=== PATIENT | female | born 1955 | race Caucasian/White ===

== ENCOUNTER → 2017-04-01 | Outpatient (CLI) | payer BC ==
--- NOTE | 2017-04-01 12:54 | KCIC ---
DATE: 04/01/2017. EXAM: MAMMO SHITAL SCREENING BILATERAL. HISTORY: Routine mammographic screening. COMPARISON: 07/29/2012. This study was interpreted with the benefit of Computerized Aided Detection (CAD). FINDINGS: The breast parenchyma is dense, which could reduce sensitivity of mammography. Breast parenchyma level density D.. There are no suspicious masses, microcalcifications or architectural distortion. Diffuse scattered calcifications are stable and benign. The densities inferior to both nipples are stable and may represent cysts or dilated ducts. BI-RADS CATEGORY: 2 BENIGN FINDING(S). RECOMMENDED FOLLOW-UP: 12M 12 MONTH FOLLOW-UP. PQRS compliance statement: Patient information was entered into a reminder system with a target due date 04/01/2018 for the next mammogram. Mammography is a sensitive method for finding small breast cancers, but it does not detect them all and is not a substitute for careful clinical examination. A negative mammogram does not negate a clinically suspicious finding and should not result in delay in biopsying a clinically suspicious abnormality. "Our facility is accredited by the [employer] Mammography [employer]."
== END | disposition home or self-care (01) ==
LOC: KCIC MAMMO 08:21
PROVIDERS: ATTEND Obstetrics & Gynecology
DX: Z12.31 Encounter for screening mammogram for malignant neoplasm of breast (principal)
CPT/HCPCS: 77063; G0202; 77067

== ENCOUNTER → 2018-10-03 | Outpatient (CLI) | payer BC ==
--- NOTE | 2018-10-04 09:48 | KCIC ---
EXAM: Bilateral digital screening mammogram with tomosynthesis. HISTORY: 63-year-old female presents for screening mammography. TECHNIQUE: Full-field digital craniocaudal and mediolateral oblique 2D and 3D tomosynthesis images of both breasts are obtained for evaluation. Computer aided detection with ChiasmaD software version 9.3 was applied. COMPARISON: 07/29/2012 BREAST PARENCHYMAL DENSITY: Level D - Extremely dense. FINDINGS: There are multiple circumscribed nodular densities within both breasts, the majority of which are stable and others of which are increased or decreased compared to the prior study. The multiplicity of these nodular densities favors a benign etiology such as cysts. There is no new lesion with suspicious morphology. There is no suspicious architectural distortion. There are benign calcifications scattered throughout both breasts. IMPRESSION: BI-RADS Category 2: Benign finding(s). RECOMMENDATION: Annual mammography is recommended. If your mammogram demonstrates that you have dense breast tissue, which could hide abnormalities, and if you have other risk factors for breast cancer that have been identified, you might benefit from supplemental screening tests that may be suggested by your ordering physician. Dense breast tissue, in and of itself, is a relatively common condition. This information is not provided to cause undue concern, but rather to raise your awareness and to promote discussion with your physician regarding the presence of other risk factors, in addition to dense breast tissue. A report of your mammography results will be sent to you and your physician. You should contact your physician if you have any questions or concerns regarding this report. Mammography is a sensitive method for finding small breast cancers, but it does not detect them all and is not a substitute for careful clinical examination. A negative mammogram does not negate a clinically suspicious finding and should not result in delay in biopsying a clinically suspicious abnormality. PQRS compliance statement - Patient information was entered into a reminder system with a target due date for the next mammogram. "Our facility is accredited by the [employer] Mammography [employer]." Electronically signed by: Sri Menchaca MD (10/04/2018 9:46 AM) [id number]
== END | disposition home or self-care (01) ==
LOC: KCIC MAMMO 14:08
PROVIDERS: ATTEND Obstetrics & Gynecology
DX: Z12.31 Encounter for screening mammogram for malignant neoplasm of breast (principal); N64.89 Other specified disorders of breast
CPT/HCPCS: 77063; 77067

== ENCOUNTER → 2019-07-04 | Outpatient (CLI) | payer BC ==
--- NOTE | 2019-07-04 14:18 | KCIC ---
Right breast diagnostic digital mammograms with 3-D tomosynthesis: Reason for examination: Right breast lump with dimpling for one and half months. Comparison is made to previous studies dated 10/03/2018 and 04/01/2017. Right breast mammograms in CC and oblique projections were obtained with 2-D imaging and 3-D tomosynthesis imaging on a Siemens Inspiration unit and reviewed on the workstation. Interpretation was made with the benefit of CAD. The skin and nipple show no abnormalities. No abnormal axillary lymph nodes are seen. The breast parenchyma is extremely dense. (Breast density: Category D.) There appears to be new lobulated parenchymal density in the upper outer quadrant correspond to the area of clinical concern. There also appears to be some increased prominence of lymph nodes at the right axilla. Further evaluation with ultrasound will follow. Impression: Nodular parenchymal density in the upper outer quadrant of the right breast corresponding to the area of mammographic concern with prominent right axillary lymph nodes. Ultrasound to follow. Your patient's mammogram demonstrates that she has dense breast tissue (breast density category C or D), which could hide abnormalities, and if she has other risk factors for breast cancer that have been identified, she might benefit from supplemental screening tests that may be suggested by you as her ordering physician. Dense breast tissue, in and of itself, is a relatively common condition. Therefore, this information is not provided to cause undue concern, but rather to raise your awareness and to promote discussion with your patient regarding the presence of other risk factors, in addition to dense breast tissue. Your patient's mammography results will be sent to her. BI-RAD Category 0: Incomplete. Needs additional imaging evaluation. Right breast ultrasound: Ultrasound examination of the right breast and axilla was performed. There is heterogeneous lobulated mass in the upper outer quadrant extending from the 9:30 position 4 cm from the nipple to the 12:00 position 4 cm from the nipple which appears to contain calcifications. This corresponds to the area of mammographic concern. There are also an abnormal appearing lymph node in the axilla measuring up to 1 cm in size. IMPRESSION: Mass lesion in the upper outer quadrant of the right breast with abnormal lymph nodes in the axilla. These findings are highly suspicious of malignancy and ultrasound-guided biopsies are recommended of the mass and abnormal axillary lymph node. BI-RADS Category 5: Highly suggestive of malignancy. These findings have been discussed with the patient and the patient's physician, Dr. Brewer, was notified about these findings at 2:13 PM on 07/04/2019. "Our facility is accredited by the [employer] Mammography [employer]." This patient's information has been entered into a reminder system for the patient to be notified with the results of her examination and a target date for the next mammogram. Electronically signed by: Lyssa Bob MD (07/04/2019 2:15 PM) [id number]
== END | disposition home or self-care (01) ==
LOC: KCIC MAMMO 12:41
PROVIDERS: ATTEND Nurse Practitioner
DX: N63.11 Unspecified lump in the right breast, upper outer quadrant (principal)
CPT/HCPCS: 76641; 77065; G0279; 77061